=== PATIENT | male | born 1960 | race Caucasian/White ===

== ENCOUNTER 2017-04-28 09:40 | Inpatient (IN) | payer OTHER ==
[~2017-04-28] VITALS: Ht 172.7 cm; Wt 108.5 kg
[2017-04-28 10:16] LABS: microscopic required? NO
[2017-04-28 10:35] LABS: urine erythrocyte NEGATIVE (NEGATIVE)
[2017-04-28 10:37] LABS: BASOPHIL % 0.6 % (0-2); PLATELET COUNT 226 x10^3mcL (130-400)
[2017-04-28 10:44] LABS: AMPHETAMINE QUAL UR NONE DETECTED (NEG <=1000)
[2017-04-28 10:46] LABS: CALCIUM 8.4 mg/dL (8.5-10.1); CARBON DIOXIDE 24.3 mmol/L (21-32); CHLORIDE SERUM 104 mmol/L (98-107); CREATININE SERUM 0.9 mg/dL (0.7-1.3); GFR1 > 60 mL/min; GLUCOSE SERUM 150 mg/dL (74-106); POTASSIUM SERUM 3.6 mmol/L (3.5-5.1); SODIUM SERUM 139 mmol/L (136-145)
[2017-04-28 10:51] LABS: ALBUMIN 3.6 g/dL (3.4-5.0); ALKALINE PHOSPHATASE 68 U/L (46-116); ALT/SGPT 21 U/L (16-63); AST/SGOT 17 U/L (15-37); BILIRUBIN TOTAL 0.88 mg/dL (0.20-1.00); TOTAL PROTEIN, SERUM 7.3 g/dL (6.4-8.2)
[2017-04-28 10:57] LABS: FREE T4 1.11 ng/dL (0.76-1.46); FREE THYROXINE INDEX 3.5 ug/dL (1.4-4.5); T4(THYROXINE) 9.5 ug/dL (4.7-13.3)
[2017-04-28 11:01] LABS: T3 TOTAL 1.01 ng/mL
[2017-04-28] MEDS ORDERED: COZAAR100 MG PO (12:07)
[2017-04-28] MEDS ORDERED: METFORMIN HYD1000 M2 PO (12:07)
[2017-04-28 13:31] VITALS: BP 155/84
[2017-04-28 14:17] LABS: CHOLESTEROL/HDL RATIO 3.6; PHOSPHOROUS 2.7 mg/dL (2.5-4.9)
[2017-04-28 17:29] VITALS: BP 154/85
[2017-04-28 21:37] VITALS: BP 156/85
[2017-04-29] VITALS (8 sets, daily range): BP systolic 151–177; BP diastolic 76–98; Ht 172.7 cm; Wt 108.5 kg
[2017-04-29 06:56] LABS: CALCIUM 8.4 mg/dL (8.5-10.1); CHLORIDE SERUM 108 mmol/L (98-107); CREATININE SERUM 0.9 mg/dL (0.7-1.3); GFR1 > 60 mL/min; GLUCOSE SERUM 116 mg/dL (74-106); POTASSIUM SERUM 3.9 mmol/L (3.5-5.1); SODIUM SERUM 141 mmol/L (136-145)
[2017-04-30 05:38] VITALS: BP 159/90
[2017-04-30 06:34] LABS: BASOPHIL % 0.3 % (0-2); PLATELET COUNT 189 x10^3mcL (130-400); RED CELL DISTRIBUTION WIDTH 13.8 % (11.5-14.5)
[2017-04-30 06:51] LABS: CALCIUM 8.5 mg/dL (8.5-10.1); CARBON DIOXIDE 26.9 mmol/L (21-32); CHLORIDE SERUM 106 mmol/L (98-107); CREATININE SERUM 0.8 mg/dL (0.7-1.3); GFR1 > 60 mL/min; GLUCOSE SERUM 116 mg/dL (74-106); POTASSIUM SERUM 3.7 mmol/L (3.5-5.1); SODIUM SERUM 139 mmol/L (136-145)
[2017-04-30 09:33] VITALS: BP 150/78
[2017-04-30] MEDS ORDERED: METOPROLOL TART25 M1 PO (10:13)
[2017-04-30] MEDS ORDERED: LIPI10 PO (10:13)
[2017-04-30] MEDS ORDERED: ECO81 PO (10:14)
[2017-04-30] MEDS ORDERED: HYDROCHLOROTHIA25 MG PO (10:15)
[2017-04-30 13:36] VITALS: BP 159/90
== END 2017-04-30 14:05 | disposition home or self-care (01) | DRG 243 ==
LOC: ED 09:40 → DU 12:07
PROVIDERS: Emergency Medicine; Family Medicine; ADMIT Family Medicine Sports Medicine
DX: K21.9 Gastro-esophageal reflux disease without esophagitis (principal); N17.0 Acute kidney failure with tubular necrosis; D68.69 Other thrombophilia; E11.65 Type 2 diabetes mellitus with hyperglycemia; E83.51 Hypocalcemia; I10 Essential (primary) hypertension; E66.9 Obesity, unspecified; Z68.36 Body mass index [BMI] 36.0-36.9, adult; Z79.84 Long term (current) use of oral hypoglycemic drugs
CPT/HCPCS: 82962; 83880; 84439; 90658; 90732; C1769; C1887; C1894; J0360; J2405; J3010; J3490; J7030; Q0092

== ENCOUNTER 2018-10-10 09:30 | Emergency (ER) | payer OTHER ==
[~2018-10-10] VITALS: Ht 172.7 cm; Wt 111.3 kg
[~2018-10-10 09:30] MED LIST: COZAAR100 MG PO; ECO81 PO; HYDROCHLOROTHIA25 MG PO; LIPI10 PO; METFORMIN HYD1000 M2 PO; METOPROLOL TART25 M1 PO
[2018-10-10 09:41] VITALS: Ht 172.7 cm; Wt 111.3 kg
[2018-10-10 10:51] LABS: CALCIUM 8.4 mg/dL (8.5-10.1); CHLORIDE SERUM 103 mmol/L (98-107); CREATININE SERUM 0.9 mg/dL (0.7-1.3); GFR1 > 60 mL/min; GLUCOSE SERUM 209 mg/dL (74-106); POTASSIUM SERUM 4.1 mmol/L (3.5-5.1); SODIUM SERUM 139 mmol/L (136-145)
[2018-10-10 10:55] LABS: ALBUMIN 3.6 g/dL (3.4-5.0); ALKALINE PHOSPHATASE 67 U/L (46-116); ALT/SGPT 23 U/L (16-63); AST/SGOT 19 U/L (15-37); BILIRUBIN TOTAL 0.5 mg/dL (0.20-1.00); TOTAL PROTEIN, SERUM 7.3 g/dL (6.4-8.2)
[2018-10-10 12:45] LABS: PLATELET COUNT 238 x10^3mcL (130-400)
[2018-10-10 14:02] VITALS: BP 156/98
[2018-10-10 15:38] LABS: BAND NEUTROPHIL 0 % (0-10); BASOPHIL 0 % (0-2); MONOCYTE 9 % (0-7); SEGMENTED NEUTROPHILS 83 % (37-75)
[2018-10-10 15:40] LABS: PLATELET MORPHOLOGY PLATELETS DECREASED; rbc morphology (normal/abnorm) ABNORMAL (NORMAL)
== END 2018-10-10 14:02 | disposition home or self-care (01) ==
LOC: ED 09:30
PROVIDERS: Emergency Medicine
DX: I16.0 Hypertensive urgency (principal); G89.29 Other chronic pain; M54.5 Low back pain; N40.0 Benign prostatic hyperplasia without lower urinary tract symptoms; E11.9 Type 2 diabetes mellitus without complications
CPT/HCPCS: 36415; J1885; Q0092